=== PATIENT | female | born 2000 | race Two or more races ===

== ENCOUNTER 2024-01-12 20:54 | Emergency (ER) | payer OTHER ==
[~2024-01-12] VITALS: Ht 162.6 cm; Wt 63.5 kg
[2024-01-13] MEDS ORDERED: ACET-1304 PO (00:21)
[2024-01-13] MEDS ORDERED: BAC09TP TOP (00:21)
[2024-01-13] MEDS ORDERED: IBUP-1455 PO (00:21)
[2024-01-13] MEDS: ONDANSETRON ODT 4 MG TAB PO ONE (03:59)
[2024-01-13] MEDS: HYDROcodone-ACET 5/325MG TAB PO ONE (03:59)
[2024-01-13] MEDS: TETANUS-DIPTH-ACEL PERTUSSIS 0.5ML SYR Tdap IM ONE (04:05)
[2024-01-13] MEDS: ACETAMINOPHEN 325 MG TAB PO ONE ×2 (04:06→07:47)
[2024-01-13 04:56] VITALS: TEMP 98.1
[2024-01-13 04:57] VITALS: PULSE 77; RESP 16; O2SAT 99
[2024-01-13 09:01] VITALS: BP 117/74; PULSE 76; O2SAT 97
== END 2024-01-13 08:53 | disposition home or self-care (01) ==
LOC: ER 20:54 → EDBD 20:54 → ER 01-13 08:53
DX: S06.0X0A Concussion without loss of consciousness, initial encounter (principal); S80.01XA Contusion of right knee, initial encounter; S40.012A Contusion of left shoulder, initial encounter; S00.31XA Abrasion of nose, initial encounter; S00.01XA Abrasion of scalp, initial encounter; Z79.899 Other long term (current) drug therapy; V29.99XA Rider (driver) (passenger) of other motorcycle injured in unspecified traffic accident, initial encounter; Y93.I9 Activity, other involving external motion; Y92.89 Other specified places as the place of occurrence of the external cause; Y99.8 Other external cause status
CPT/HCPCS: 70450; 70486; 72125; 73030; 73562; 90471; 90715